=== PATIENT | female | born 1960 | race Hispanic/Latino ===

== ENCOUNTER 2018-06-21 11:00 | Inpatient (IN) | payer MEDICARE ==
[2018-06-21] VITALS (19 sets, daily range): BP systolic 98–133; BP diastolic 39–84
[~2018-06-21] VITALS: Ht 167.6 cm; Wt 71.9 kg
[~2018-06-21 11:00] MED LIST: ARFO15VI3 IH; CANA300T PO; FENT100PAT TD; FLUD0.1T2 PO; INSU100V12 SQ; IPRA4AER IH; MECL-111 PO; MONT10TA24 PO; POTA20TA82 PO; PROP10TA10 PO; QUET150T PO; RIVA20TA PO; SERT100T12 PO; SIMV80TA7 PO; TERB15CR18 TP; TRAM50TA4 PO; UMEC1DIS IH; VALS80TA30 PO; ZARO5 PO
[2018-06-21 12:00] LABS: BASOPHILS % (AUTO) 0.2 % (0.0-5.0); MEAN CORPUSCULAR HGB CONC 31.9 g/dL (32.0-36.0); MEAN CORPUSCULAR VOLUME 97.1 fL (79-99); MONOCYTES % (AUTO) 2.8 % (3.0-13.0); PLATELET COUNT (AUTO) 321 K/uL (130-400); RED BLOOD CELL COUNT(AUTO) 3.19 MIL/uL (4.00-5.50); RED CELL DISTRIBUTION WIDTH 17.5 % (11.0-15.5); WHITE BLOOD COUNT (AUTO) 20.1 K/uL (4.8-10.8)
[2018-06-21] MEDS ORDERED: SODIUM CHLORIDE 0.9% 1000ML 2,000 ML IV ONE (12:00)
[2018-06-21 12:03] LABS: INR 1.07 (0.85-1.15); PROTHROMBIN TIME 11.2 SEC (9.6-11.6)
[2018-06-21] MEDS ORDERED: CEFTRIAXONE SODIUM 1 GM ONE (12:09)
[2018-06-21 12:11] LABS: ALANINE AMINOTRANSFERASE 28 U/L (12-78); ALBUMIN 1.9 g/dL (3.5-5.0); ASPARTATE AMINOTRANSFERASE 36 U/L (10-37); BILIRUBIN,TOTAL 0.9 mg/dL (0.2-1.0); CARBON DIOXIDE 14 mmol/L (21-32); CREATINE KINASE, TOTAL 79 U/L (21-232); CREATININE 1.2 mg/dL (0.5-1.5); GLOMERULAR FILTR. RATE CALC 49 mL/min (>60); MYOGLOBIN 157 ng/mL (10-92); POTASSIUM 4.6 mmol/L (3.5-5.1); SODIUM SERUM 127 mmol/L (136-145); TROPONIN I < 0.04 ng/mL (0.00-0.06); UREA NITROGEN, BLOOD 30 mg/dL (7-18)
[2018-06-21 12:22] LABS: CHLORIDE 89 mmol/L (101-111); GLUCOSE,RANDOM 542 mg/dL (70-105)
[2018-06-21 12:29] LABS: APPEARANCE,URINE Cloudy (CLEAR); BILIRUBIN,URINE Negative (NEGATIVE); COLOR,URINE Yellow (YELLOW); GLUCOSE, URINE (UA) >=1000 mg/dL (NEGATIVE); KETONES,URINE 40 mg/dL (NEGATIVE); LEUKOCYTE ESTERASE ,URINE Small (NEGATIVE); NITRATE,URINE Positive (NEGATIVE); OCCULT BLOOD,URINE Trace (NEGATIVE); PH,URINE 5.5 (5.0-8.0); PROTEIN,URINE Trace (NEGATIVE)
[2018-06-21 12:36] LABS: AMPHET/METH SCREEN,URINE NEGATIVE (NEGATIVE); BARBITURATE SCREEN, URINE NEGATIVE (NEGATIVE); BENZODIAZEPINES SCREEN,URINE POSITIVE (NEGATIVE); CANNABINOID SCREEN,URINE NEGATIVE (NEGATIVE); COCAINE SCREEN,URINE NEGATIVE (NEGATIVE); OPIATE SCREEN,URINE NEGATIVE (NEGATIVE); PHENCYCLIDINE SCREEN,URINE NEGATIVE (NEGATIVE)
[2018-06-21] MEDS ORDERED: INSULIN HUMULIN R 100 UNIT/ML 3ML ONE ×2 (12:46→13:22)
[2018-06-21] MEDS ORDERED: IOHEXOL 350 MG/ML 100ML INFUS..BTL IV ONE (12:53)
[2018-06-21] MEDS ORDERED: SODIUM CHLORIDE 0.9% 1000ML 1,000 ML IV ONE ×2 (13:18→14:11)
[2018-06-21] MEDS ORDERED: SODIUM CHLORIDE 0.9% 100 ML IV ONE (13:20)
[2018-06-21 13:26] LABS: BACTERIA,URINE Moderate /HPF (None Seen); RBC,URINE 0-1 /HPF (0-1); YEAST,URINE BUDDING Few /HPF (None Seen)
[2018-06-21] MEDS ORDERED: INSULIN SQ SCH ×2 (14:30)
[2018-06-21] MEDS ORDERED: DEXTROSE 50%-WATER 50 ML DISP.SYRIN IV PRN (14:30)
[2018-06-21] MEDS ORDERED: GLUCAGON 1MG KIT 1 MG ML IM PRN (14:30)
[2018-06-21] MEDS ORDERED: SODIUM CHLORIDE SQ SCH ×2 (14:30)
[2018-06-21] MEDS: SODIUM CHLORIDE 0.9% 1000ML 1,000 ML IV SCH ×2 (15:13→21:49)
[2018-06-21] MEDS ORDERED: LIDOCAINE HCL-MPF 1% 2ML VIAL IVP PRN ×2 (16:45)
[2018-06-21] MEDS ORDERED: POTASSIUM CHLORIDE 20MEQ/100ML 100 ML IV PRN (16:45)
[2018-06-21 17:00] LABS: ABG BASE EXCESS -7.2 mmol/L (-2.0-3.0); ABG HCO3 16.6 mmol/L (21.0-28.0); ABG OXYGEN SATURATION 96.8 % (95.0-99.0); ABG PCO2 29 mmHg (32-45)
[2018-06-21 17:41] LABS: CREATINE KINASE, TOTAL 36 U/L (21-232); MYOGLOBIN 51 ng/mL (10-92); TROPONIN I < 0.04 ng/mL (0.00-0.06)
[2018-06-21 17:45] LABS: CREATININE 0.6 mg/dL (0.5-1.5); POTASSIUM 2.1 mmol/L (3.5-5.1)
[2018-06-21 17:46] LABS: MAGNESIUM 1.3 mg/dL (1.80-2.40); PHOSPHORUS 1.6 mg/dL (2.5-4.9)
[2018-06-21] MEDS: LEVOFLOXACIN 750 MG/D5W 150 ML 150 ML IV SCH (17:56)
[2018-06-21] MEDS: RIVAROXABAN 20 MG TABLET PO SCH (17:56)
[2018-06-21] MEDS: POTASSIUM CHLORIDE 20MEQ/100ML 100 ML IV PRN ×3 (17:57→21:22)
[2018-06-21] MEDS ORDERED: IPRATROPIUM/ALBUTEROL SULFATE 3 ML SOLUTION IH PRN (18:00)
[2018-06-21] MEDS ORDERED: LIDOCAINE HCL 1% 20 ML VIAL ONE (18:08)
[2018-06-21] MEDS: MAGNESIUM 2GM PREMIX 50ML 50 ML IV PRN ×2 (18:12→23:29)
[2018-06-21] MEDS: IPRATROPIUM/ALBUTEROL SULFATE 3 ML SOLUTION IH SCH ×2 (18:49→23:37)
[2018-06-21 22:53] LABS: CREATININE 0.8 mg/dL (0.5-1.5); PHOSPHORUS 1.7 mg/dL (2.5-4.9); POTASSIUM 3.9 mmol/L (3.5-5.1)
[2018-06-21 23:04] LABS: CREATINE KINASE, TOTAL 55 U/L (21-232); MYOGLOBIN 60 ng/mL (10-92); TROPONIN I < 0.04 ng/mL (0.00-0.06)
[2018-06-21] MEDS ORDERED: DEXTROSE 5 %-0.45 % NACL 1,000 ML IV PRN (23:54)
[2018-06-21] MEDS ORDERED: FLUCONAZOLE 100 MG TAB ONE (23:58)
[2018-06-22] VITALS (27 sets, daily range): BP systolic 77–135; BP diastolic 38–113
[2018-06-22] MEDS ORDERED: FLUCONAZOLE 100 MG TAB PO ONE
[2018-06-22] MEDS ORDERED: DEXTROSE 5 %-0.45 % NACL 1,000 ML IV ONE (03:27)
[2018-06-22 04:12] LABS: HEMATOCRIT 24.1 % (36-48); MEAN CORPUSCULAR HEMOGLOBIN 31.1 pg (27.0-33.0); MEAN CORPUSCULAR HGB CONC 33.3 g/dL (32.0-36.0); MEAN CORPUSCULAR VOLUME 93.4 fL (79-99); PLATELET COUNT (AUTO) 257 K/uL (130-400); RED BLOOD CELL COUNT(AUTO) 2.58 MIL/uL (4.00-5.50); RED CELL DISTRIBUTION WIDTH 16.4 % (11.0-15.5); WHITE BLOOD COUNT (AUTO) 13.4 K/uL (4.8-10.8)
[2018-06-22 04:39] LABS: BAND NEUTROPHILS % (MANUAL) 6 % (0-2); LYMPHOCYTES % (MANUAL) 5 % (22-44); MAN.DIFF COMMENT-IMPRESSION MANUAL DIFFERENTIAL; MONOCYTES % (MANUAL) 2 % (2-9); SEGMENTED NEUTROPHILS % 87 % (40-70)
[2018-06-22 04:42] LABS: ALANINE AMINOTRANSFERASE 16 U/L (12-78); ALBUMIN 1.3 g/dL (3.5-5.0); ASPARTATE AMINOTRANSFERASE 27 U/L (10-37); BILIRUBIN,TOTAL 0.6 mg/dL (0.2-1.0); CARBON DIOXIDE 21 mmol/L (21-32); CHLORIDE 105 mmol/L (101-111); CREATINE KINASE, TOTAL 48 U/L (21-232); CREATININE 0.7 mg/dL (0.5-1.5); GLOMERULAR FILTR. RATE CALC 92 mL/min (>60); GLUCOSE,RANDOM 186 mg/dL (70-105); MYOGLOBIN 65 ng/mL (10-92); PHOSPHORUS 1.4 mg/dL (2.5-4.9); POTASSIUM 3.4 mmol/L (3.5-5.1); SODIUM SERUM 136 mmol/L (136-145); TROPONIN I < 0.04 ng/mL (0.00-0.06); UREA NITROGEN, BLOOD 8 mg/dL (7-18)
[2018-06-22] MEDS: POTASSIUM CHLORIDE 20MEQ/100ML 100 ML IV PRN ×3 (05:42→14:08)
[2018-06-22] MEDS: IPRATROPIUM/ALBUTEROL SULFATE 3 ML SOLUTION IH SCH ×4 (06:20→23:46)
[2018-06-22 07:26] LABS: ABG BASE EXCESS -12.3 mmol/L (-2.0-3.0); ABG HCO3 11.5 mmol/L (21.0-28.0); ABG OXYGEN SATURATION 95.6 % (95.0-99.0); ABG PCO2 23 mmHg (32-45)
[2018-06-22] MEDS ORDERED: POTASSIUM PHOS 15 mMOL+NS250ML 250 ML IV SCH (07:45)
[2018-06-22] MEDS: LEVOFLOXACIN 750 MG/D5W 150 ML 150 ML IV SCH (08:12)
[2018-06-22] MEDS: ACETAMINOPHEN 325 MG TAB PO PRN ×2 (08:12→23:11)
[2018-06-22] MEDS: RIVAROXABAN 20 MG TABLET PO SCH (08:12)
[2018-06-22] MEDS ORDERED: PRED10TA3 PO (08:31)
[2018-06-22] MEDS ORDERED: OLME20TA10 PO (08:31)
[2018-06-22] MEDS ORDERED: FLUO20CA30 PO (08:31)
[2018-06-22 11:21] LABS: MAGNESIUM 1.6 mg/dL (1.80-2.40); PHOSPHORUS 1.3 mg/dL (2.5-4.9)
[2018-06-22 11:39] LABS: CREATININE 0.7 mg/dL (0.5-1.5)
[2018-06-22] MEDS: CEFTRIAXONE SODIUM 1 GM IVP SCH (12:26)
[2018-06-22] MEDS: MAGNESIUM 2GM PREMIX 50ML 50 ML IV PRN (12:26)
[2018-06-22] MEDS: SODIUM CHLORIDE 0.9% 1000ML 1,000 ML IV SCH ×2 (17:09→19:30)
[2018-06-22 17:12] LABS: CREATININE 0.7 mg/dL (0.5-1.5); MAGNESIUM 2.1 mg/dL (1.80-2.40); POTASSIUM 3.9 mmol/L (3.5-5.1)
[2018-06-22] MEDS: INSULIN HUMULIN R 100 UNIT/ML 3ML SQ SCH (21:01)
[2018-06-22 23:28] LABS: MAGNESIUM 2.1 mg/dL (1.80-2.40); PHOSPHORUS 1.8 mg/dL (2.5-4.9)
[2018-06-23] VITALS (22 sets, daily range): BP systolic 80–120; BP diastolic 42–78
[2018-06-23 03:53] LABS: HEMATOCRIT 21.7 % (36-48); MEAN CORPUSCULAR HEMOGLOBIN 31.4 pg (27.0-33.0); MEAN CORPUSCULAR HGB CONC 33.4 g/dL (32.0-36.0); PLATELET COUNT (AUTO) 248 K/uL (130-400); RED BLOOD CELL COUNT(AUTO) 2.31 MIL/uL (4.00-5.50); RED CELL DISTRIBUTION WIDTH 16.2 % (11.0-15.5); WHITE BLOOD COUNT (AUTO) 14.8 K/uL (4.8-10.8)
[2018-06-23 04:01] LABS: CREATININE 0.7 mg/dL (0.5-1.5); PHOSPHORUS 2.6 mg/dL (2.5-4.9); POTASSIUM 3.3 mmol/L (3.5-5.1)
[2018-06-23] MEDS: INSULIN HUMULIN R 100 UNIT/ML 3ML SQ SCH ×4 (05:34→21:00)
[2018-06-23] MEDS: IPRATROPIUM/ALBUTEROL SULFATE 3 ML SOLUTION IH SCH ×4 (06:15→23:22)
[2018-06-23] MEDS: FLUCONAZOLE 100 MG TAB PO SCH (07:40)
[2018-06-23] MEDS: POTASSIUM CHLORIDE 10% ELIXIR 20 MEQ/15 ML UDCUP PO PRN ×3 (07:42→18:54)
[2018-06-23] MEDS: RIVAROXABAN 20 MG TABLET PO SCH (07:45)
[2018-06-23] MEDS: LEVOFLOXACIN 750 MG/D5W 150 ML 150 ML IV SCH (08:20)
[2018-06-23] MEDS: ACETAMINOPHEN 325 MG TAB PO PRN ×2 (11:03→23:36)
[2018-06-23] MEDS: CEFTRIAXONE SODIUM 1 GM IVP SCH (11:58)
[2018-06-23] MEDS ORDERED: LACTATED RINGERS 1000ML 1,000 ML IV ONE (14:57)
[2018-06-23] MEDS ORDERED: LACTATED RINGERS 1000ML 1,000 ML IV SCH ×2 (15:00)
[2018-06-23] MEDS ORDERED: LACTATED RINGERS 1000ML IV SCH (15:00)
[2018-06-23 15:15] LABS: CARBON DIOXIDE 20 mmol/L (21-32); CHLORIDE 102 mmol/L (101-111); CREATININE 0.7 mg/dL (0.5-1.5); GLOMERULAR FILTR. RATE CALC 92 mL/min (>60); GLUCOSE,RANDOM 236 mg/dL (70-105); POTASSIUM 3.8 mmol/L (3.5-5.1); SODIUM SERUM 134 mmol/L (136-145); UREA NITROGEN, BLOOD 4 mg/dL (7-18)
[2018-06-23 15:20] LABS: ALANINE AMINOTRANSFERASE 20 U/L (12-78); ALBUMIN 1.2 g/dL (3.5-5.0); ASPARTATE AMINOTRANSFERASE 33 U/L (10-37); BILIRUBIN,TOTAL 0.4 mg/dL (0.2-1.0); TOTAL PROTEIN, SERUM 6.7 g/dL (6.0-8.3)
[2018-06-23 15:50] LABS: ACETONE,BLOOD POSITIVE SMALL (NEGATIVE)
[2018-06-23] MEDS: SODIUM CHLORIDE 0.9% 1000ML 1,000 ML IV SCH ×2 (16:30→23:51)
[2018-06-24] VITALS (15 sets, daily range): BP systolic 82–110; BP diastolic 38–64
[2018-06-24 03:45] LABS: HEMATOCRIT 22.5 % (36-48); MEAN CORPUSCULAR HEMOGLOBIN 31.3 pg (27.0-33.0); MEAN CORPUSCULAR HGB CONC 33.5 g/dL (32.0-36.0); MEAN CORPUSCULAR VOLUME 93.5 fL (79-99); PLATELET COUNT (AUTO) 236 K/uL (130-400); RED CELL DISTRIBUTION WIDTH 16.1 % (11.0-15.5); WHITE BLOOD COUNT (AUTO) 12.7 K/uL (4.8-10.8)
[2018-06-24 03:52] LABS: CREATININE 0.7 mg/dL (0.5-1.5); POTASSIUM 3.8 mmol/L (3.5-5.1)
[2018-06-24] MEDS: INSULIN HUMULIN R 100 UNIT/ML 3ML SQ SCH ×4 (05:46→21:45)
[2018-06-24] MEDS: IPRATROPIUM/ALBUTEROL SULFATE 3 ML SOLUTION IH SCH ×4 (06:32→23:41)
[2018-06-24] MEDS: FLUCONAZOLE 100 MG TAB PO SCH (08:02)
[2018-06-24] MEDS: SODIUM CHLORIDE 0.9% 1000ML 1,000 ML IV SCH ×2 (08:02→20:57)
[2018-06-24] MEDS: LEVOFLOXACIN 750 MG/D5W 150 ML 150 ML IV SCH (08:02)
[2018-06-24] MEDS: RIVAROXABAN 20 MG TABLET PO SCH (08:56)
[2018-06-24] MEDS: ACETAMINOPHEN 325 MG TAB PO PRN ×2 (09:11→20:38)
[2018-06-24] MEDS: CEFTRIAXONE SODIUM 1 GM IVP SCH (11:46)
[2018-06-24] MEDS ORDERED: VANCOMYCIN PROTOCOL PER PHARMACY IV SCH (12:00)
[2018-06-24] MEDS: ZOSYN 3.375GM+NS 50ML 50 ML IV SCH ×2 (14:20→20:37)
[2018-06-24] MEDS ORDERED: COMPOUND IV REFRIGERATED 1 EACH IVSOLN MISC PRN (15:00)
[2018-06-24] MEDS: VANCOMYCIN 1.25 GM in SODIUM CHLORIDE 0.9% 250 ML IV SCH (15:51)
[2018-06-24] MEDS ORDERED: SODIUM CHLORIDE 3% FOR INHALATION 4 ML/AMP VIAL.NEB IH ONE (21:03)
[2018-06-24] MEDS: FENTANYL 100 MCG/HR PATCH TD SCH (21:35)
[2018-06-25] MEDS: VANCOMYCIN 1.25 GM in SODIUM CHLORIDE 0.9% 250 ML IV SCH ×3 (03:22→21:28)
[2018-06-25 03:46] LABS: BASOPHILS % (AUTO) 0.3 % (0.0-5.0); EOSINOPHILS % (AUTO) 0.3 % (0.0-8.0); HEMATOCRIT 23.7 % (36-48); LYMPHOCYTES % (AUTO) 10.6 % (21.0-51.0); MEAN CORPUSCULAR HEMOGLOBIN 31.6 pg (27.0-33.0); MEAN CORPUSCULAR HGB CONC 34.1 g/dL (32.0-36.0); MEAN CORPUSCULAR VOLUME 92.6 fL (79-99); MONOCYTES % (AUTO) 4.7 % (3.0-13.0); NEUTROPHILS % (AUTO) 84.1 % (40.0-77.0); PLATELET COUNT (AUTO) 257 K/uL (130-400); RED BLOOD CELL COUNT(AUTO) 2.56 MIL/uL (4.00-5.50); RED CELL DISTRIBUTION WIDTH 15.8 % (11.0-15.5); WHITE BLOOD COUNT (AUTO) 10.9 K/uL (4.8-10.8)
[2018-06-25 03:52] VITALS: BP 105/66
[2018-06-25 03:56] LABS: INR 1.28 (0.85-1.15); PARTIAL THROMBOPLASTIN TIME 40.5 SEC (26.3-35.5); PROTHROMBIN TIME 13.4 SEC (9.6-11.6)
[2018-06-25 04:03] LABS: ALBUMIN 1.2 g/dL (3.5-5.0); BILIRUBIN,TOTAL 0.4 mg/dL (0.2-1.0); CREATININE 0.7 mg/dL (0.5-1.5); MAGNESIUM 1.6 mg/dL (1.80-2.40); PHOSPHORUS 3.6 mg/dL (2.5-4.9); POTASSIUM 3.8 mmol/L (3.5-5.1); TOTAL PROTEIN, SERUM 6.8 g/dL (6.0-8.3)
[2018-06-25] MEDS: ZOSYN 3.375GM+NS 50ML 50 ML IV SCH ×3 (05:34→20:43)
[2018-06-25] MEDS: IPRATROPIUM/ALBUTEROL SULFATE 3 ML SOLUTION IH SCH ×4 (06:07→23:37)
[2018-06-25] MEDS: INSULIN HUMULIN R 100 UNIT/ML 3ML SQ SCH ×4 (06:52→21:18)
[2018-06-25 07:00] VITALS: BP 102/60
[2018-06-25] MEDS ORDERED: SODIUM CHLORIDE 3% FOR INHALATION 4 ML/AMP VIAL.NEB IH ONE (08:57)
[2018-06-25] MEDS: RIVAROXABAN 20 MG TABLET PO SCH (09:00)
[2018-06-25 11:00] VITALS: BP 94/47
[2018-06-25] MEDS: FLUCONAZOLE 100 MG TAB PO SCH (11:21)
[2018-06-25] MEDS: LEVOFLOXACIN 750 MG/D5W 150 ML 150 ML IV SCH (11:21)
[2018-06-25 11:37] LABS: COLLECTION PERIOD,URINE 24 HR; TOTAL VOLUME 24HRS,URINE 4800 mL; TPROTEIN TIMED,URINE 27 mg/dL; TPROTEIN U,24HR CALC 1296 mg/24HR (0-165)
[2018-06-25 16:00] VITALS: BP 92/54
[2018-06-25] MEDS: SODIUM CHLORIDE 0.9% 1000ML 1,000 ML IV SCH (16:50)
[2018-06-25] MEDS: ACETAMINOPHEN 325 MG TAB PO PRN (18:34)
[2018-06-25 19:58] VITALS: BP 90/45
[2018-06-26] VITALS (22 sets, daily range): BP systolic 93–126; BP diastolic 48–81
[2018-06-26 03:30] LABS: HEMATOCRIT 23.6 % (36-48); MEAN CORPUSCULAR HEMOGLOBIN 31.5 pg (27.0-33.0); MEAN CORPUSCULAR VOLUME 92.6 fL (79-99); PLATELET COUNT (AUTO) 238 K/uL (130-400); RED BLOOD CELL COUNT(AUTO) 2.55 MIL/uL (4.00-5.50); RED CELL DISTRIBUTION WIDTH 16.1 % (11.0-15.5); WHITE BLOOD COUNT (AUTO) 9.8 K/uL (4.8-10.8)
[2018-06-26 04:06] LABS: CREATININE 0.7 mg/dL (0.5-1.5); POTASSIUM 3.7 mmol/L (3.5-5.1)
[2018-06-26] MEDS: ZOSYN 3.375GM+NS 50ML 50 ML IV SCH ×2 (05:01→13:00)
[2018-06-26] MEDS: IPRATROPIUM/ALBUTEROL SULFATE 3 ML SOLUTION IH SCH ×4 (06:16→23:10)
[2018-06-26] MEDS: INSULIN HUMULIN R 100 UNIT/ML 3ML SQ SCH ×4 (06:23→21:34)
[2018-06-26] MEDS: FLUCONAZOLE 100 MG TAB PO SCH (07:53)
[2018-06-26] MEDS: ACETAMINOPHEN 325 MG TAB PO PRN ×2 (07:53→23:35)
[2018-06-26] MEDS: VANCOMYCIN 1.25 GM in SODIUM CHLORIDE 0.9% 250 ML IV SCH ×2 (07:54→21:17)
[2018-06-26] MEDS: SODIUM CHLORIDE 0.9% 1000ML 1,000 ML IV SCH ×2 (10:45→20:45)
[2018-06-26] MEDS ORDERED: SODIUM CHLORIDE 0.9% 1000ML 1,000 ML IV SCH (10:45)
[2018-06-26] MEDS ORDERED: ONDANSETRON HCL 4 MG/2 ML VIAL ONE (11:02)
[2018-06-26] MEDS: LEVOFLOXACIN 750 MG/D5W 150 ML 150 ML IV SCH (11:08)
[2018-06-26] MEDS: MORPHINE SULFATE 2 MG/ML 1ML SYG IVP PRN ×3 (11:08→21:18)
[2018-06-26] MEDS ORDERED: PROPOFOL 10 MG/ML 20ML VIAL IV ONE ×2 (13:41)
[2018-06-27 03:34] VITALS: BP 107/66
[2018-06-27 03:47] LABS: HEMATOCRIT 21.9 % (36-48); MEAN CORPUSCULAR HEMOGLOBIN 30.4 pg (27.0-33.0); MEAN CORPUSCULAR HGB CONC 32.6 g/dL (32.0-36.0); PLATELET COUNT (AUTO) 211 K/uL (130-400); RED BLOOD CELL COUNT(AUTO) 2.36 MIL/uL (4.00-5.50); RED CELL DISTRIBUTION WIDTH 16.2 % (11.0-15.5); WHITE BLOOD COUNT (AUTO) 11.6 K/uL (4.8-10.8)
[2018-06-27 03:56] LABS: CREATININE 1.2 mg/dL (0.5-1.5); POTASSIUM 3.2 mmol/L (3.5-5.1)
[2018-06-27] MEDS: POTASSIUM CHLORIDE 20 MEQ ERTAB PO PRN ×2 (04:35→06:48)
[2018-06-27] MEDS: IPRATROPIUM/ALBUTEROL SULFATE 3 ML SOLUTION IH SCH ×4 (06:09→23:06)
[2018-06-27] MEDS: SODIUM CHLORIDE 0.9% 1000ML 1,000 ML IV SCH ×2 (06:45→16:45)
[2018-06-27] MEDS: INSULIN HUMULIN R 100 UNIT/ML 3ML SQ SCH ×4 (06:47→21:00)
[2018-06-27 07:37] VITALS: BP 105/61
[2018-06-27] MEDS: POTASSIUM CHLORIDE 10% ELIXIR 20 MEQ/15 ML UDCUP PO PRN (09:02)
[2018-06-27] MEDS: FLUCONAZOLE 100 MG TAB PO SCH (09:02)
[2018-06-27] MEDS: VANCOMYCIN 1.25 GM in SODIUM CHLORIDE 0.9% 250 ML IV SCH ×2 (09:03→22:54)
[2018-06-27] MEDS: LEVOFLOXACIN 750 MG/D5W 150 ML 150 ML IV SCH (09:03)
[2018-06-27] MEDS: MORPHINE SULFATE 2 MG/ML 1ML SYG IVP PRN (09:11)
[2018-06-27] MEDS: RIVAROXABAN 20 MG TABLET PO SCH (11:34)
[2018-06-27] MEDS: MAGNESIUM 2GM PREMIX 50ML 50 ML IV SCH (11:34)
[2018-06-27 12:04] VITALS: BP 100/60
[2018-06-27 15:44] VITALS: BP 99/63
[2018-06-27 20:00] VITALS: BP 104/51
[2018-06-27] MEDS: FENTANYL 100 MCG/HR PATCH TD SCH (22:54)
[2018-06-28] VITALS (7 sets, daily range): BP systolic 94–127; BP diastolic 50–61
[2018-06-28] MEDS: INSULIN HUMULIN R 100 UNIT/ML 3ML SQ SCH ×4 (05:39→20:14)
[2018-06-28] MEDS: SODIUM CHLORIDE 0.9% 1000ML 1,000 ML IV SCH ×3 (05:41→22:45)
[2018-06-28] MEDS: ACETAMINOPHEN 325 MG TAB PO PRN ×3 (05:48→23:19)
[2018-06-28] MEDS: IPRATROPIUM/ALBUTEROL SULFATE 3 ML SOLUTION IH SCH ×4 (06:13→23:18)
[2018-06-28 06:29] LABS: HEMATOCRIT 21.4 % (36-48); MEAN CORPUSCULAR HEMOGLOBIN 31.1 pg (27.0-33.0); MEAN CORPUSCULAR HGB CONC 33.5 g/dL (32.0-36.0); MEAN CORPUSCULAR VOLUME 92.9 fL (79-99); PLATELET COUNT (AUTO) 192 K/uL (130-400); RED CELL DISTRIBUTION WIDTH 16.3 % (11.0-15.5); WHITE BLOOD COUNT (AUTO) 11.5 K/uL (4.8-10.8)
[2018-06-28 06:35] LABS: MAGNESIUM 2.1 mg/dL (1.80-2.40); POTASSIUM 4.4 mmol/L (3.5-5.1)
[2018-06-28] MEDS: LEVOFLOXACIN 750 MG/D5W 150 ML 150 ML IV SCH (07:38)
[2018-06-28] MEDS: FLUCONAZOLE 100 MG TAB PO SCH (07:39)
[2018-06-28] MEDS: RIVAROXABAN 20 MG TABLET PO SCH (07:39)
[2018-06-28] MEDS: VANCOMYCIN 1.25 GM in SODIUM CHLORIDE 0.9% 250 ML IV SCH (09:00)
[2018-06-28] MEDS: ONDANSETRON HCL MDV 20ML 2 MG/ML VIAL IVP PRN (12:17)
[2018-06-28] MEDS ORDERED: SODIUM CHLORIDE 0.9% 1000ML 500 ML IV SCH (22:33)
[2018-06-29] MEDS: SODIUM CHLORIDE 0.9% 1000ML 1,000 ML IV SCH ×2 (00:23→18:45)
[2018-06-29 03:50] VITALS: BP 112/53
[2018-06-29] MEDS: ACETAMINOPHEN 325 MG TAB PO PRN ×4 (04:07→21:03)
[2018-06-29] MEDS: INSULIN HUMULIN R 100 UNIT/ML 3ML SQ SCH ×4 (05:40→20:39)
[2018-06-29 06:16] LABS: MEAN CORPUSCULAR HEMOGLOBIN 31.1 pg (27.0-33.0); MEAN CORPUSCULAR HGB CONC 33.5 g/dL (32.0-36.0); MEAN CORPUSCULAR VOLUME 92.7 fL (79-99); PLATELET COUNT (AUTO) 159 K/uL (130-400); RED BLOOD CELL COUNT(AUTO) 2.11 MIL/uL (4.00-5.50); RED CELL DISTRIBUTION WIDTH 16.3 % (11.0-15.5); WHITE BLOOD COUNT (AUTO) 7.5 K/uL (4.8-10.8)
[2018-06-29 06:19] LABS: HEMATOCRIT 19.6 % (36-48)
[2018-06-29 06:32] LABS: CREATININE 2.3 mg/dL (0.5-1.5); POTASSIUM 4.4 mmol/L (3.5-5.1)
[2018-06-29] MEDS: IPRATROPIUM/ALBUTEROL SULFATE 3 ML SOLUTION IH SCH ×4 (06:48→23:34)
[2018-06-29 07:30] VITALS: BP 90/51
[2018-06-29] MEDS: FLUCONAZOLE 100 MG TAB PO SCH (09:28)
[2018-06-29 09:40] LABS: HEMATOCRIT 20.8 % (36-48)
[2018-06-29 11:00] VITALS: BP 98/54
[2018-06-29] MEDS ORDERED: PHARMACY COMMUNICATION MISC SCH (12:15)
[2018-06-29] MEDS ORDERED: OSELTAMIVIR PHOSPHATE 75 MG CAP PO SCH (12:15)
[2018-06-29] MEDS ORDERED: COMPOUND PO MISCELLANEOUS 1 EACH MISC MISC PRN (12:45)
[2018-06-29] MEDS ORDERED: SODIUM CHLORIDE 3% FOR INHALATION 4 ML/AMP VIAL.NEB IH ONE ×2 (13:47→21:26)
[2018-06-29] MEDS: MEROPENEM 1 GM VIAL IVP SCH ×2 (14:21→20:25)
[2018-06-29] MEDS: OSELTAMIVIR SUSP 15 MG/ML (6 CAPS/29ML) PO SCH ×2 (14:27)
[2018-06-29] MEDS: ZYVOX 600 MG TAB PO SCH (14:49)
[2018-06-29 16:00] VITALS: BP 103/48
[2018-06-29 19:00] VITALS: BP_SYST 90; BP_SYST 94; BP_DIAS 47; BP_DIAS 55
[2018-06-29] MEDS ORDERED: SODIUM CHLORIDE 0.9% 250 ML IV ONE (20:37)
[2018-06-29] MEDS: PANTOPRAZOLE SODIUM 40 MG TABLET.DR PO SCH (21:44)
[2018-06-30] VITALS (21 sets, daily range): BP systolic 82–120; BP diastolic 46–86
[2018-06-30] MEDS: SODIUM CHLORIDE 0.9% 1000ML 1,000 ML IV SCH ×3 (00:23→22:01)
[2018-06-30] MEDS: ZYVOX 600 MG TAB PO SCH ×2 (02:33→13:14)
[2018-06-30] MEDS: MEROPENEM 1 GM VIAL IVP SCH ×3 (04:02→20:39)
[2018-06-30] MEDS: ACETAMINOPHEN 325 MG TAB PO PRN (04:17)
[2018-06-30 04:38] LABS: BASOPHILS % (AUTO) 0.3 % (0.0-5.0); EOSINOPHILS % (AUTO) 0.5 % (0.0-8.0); HEMATOCRIT 25.1 % (36-48); LYMPHOCYTES % (AUTO) 8.9 % (21.0-51.0); MEAN CORPUSCULAR HEMOGLOBIN 30.4 pg (27.0-33.0); MEAN CORPUSCULAR HGB CONC 34.1 g/dL (32.0-36.0); MEAN CORPUSCULAR VOLUME 89.3 fL (79-99); MONOCYTES % (AUTO) 3.5 % (3.0-13.0); NEUTROPHILS % (AUTO) 86.8 % (40.0-77.0); NUCLEATED RED BLOOD CELLS 0.1 % (0.0-0.19); PLATELET COUNT (AUTO) 159 K/uL (130-400); RED BLOOD CELL COUNT(AUTO) 2.81 MIL/uL (4.00-5.50); RED CELL DISTRIBUTION WIDTH 16.5 % (11.0-15.5)
[2018-06-30 04:50] LABS: INR 1.06 (0.85-1.15); PARTIAL THROMBOPLASTIN TIME 38.3 SEC (26.3-35.5); PROTHROMBIN TIME 11.1 SEC (9.6-11.6)
[2018-06-30 05:05] LABS: ALANINE AMINOTRANSFERASE 19 U/L (12-78); ALBUMIN 1.1 g/dL (3.5-5.0); ASPARTATE AMINOTRANSFERASE 23 U/L (10-37); BILIRUBIN,TOTAL 0.4 mg/dL (0.2-1.0); CARBON DIOXIDE 22 mmol/L (21-32); CHLORIDE 104 mmol/L (101-111); CREATININE 2.4 mg/dL (0.5-1.5); GLOMERULAR FILTR. RATE CALC 22 mL/min (>60); GLUCOSE,RANDOM 145 mg/dL (70-105); PHOSPHORUS 4.6 mg/dL (2.5-4.9); POTASSIUM 4.7 mmol/L (3.5-5.1); SODIUM SERUM 137 mmol/L (136-145); TOTAL PROTEIN, SERUM 6.1 g/dL (6.0-8.3); UREA NITROGEN, BLOOD 15 mg/dL (7-18)
[2018-06-30 05:10] LABS: B-TYPE NATRIURETIC PEPTIDE 1650 pg/mL (0-100)
[2018-06-30 05:15] LABS: AMMONIA < 10 umol/L (11-32)
[2018-06-30] MEDS: IPRATROPIUM/ALBUTEROL SULFATE 3 ML SOLUTION IH SCH ×4 (06:09→23:24)
[2018-06-30] MEDS: INSULIN HUMULIN R 100 UNIT/ML 3ML SQ SCH ×4 (06:31→20:47)
[2018-06-30] MEDS: PANTOPRAZOLE SODIUM 40 MG TABLET.DR PO SCH ×2 (09:13→20:39)
[2018-06-30] MEDS: FLUCONAZOLE 100 MG TAB PO SCH (09:13)
[2018-06-30] MEDS: HYDROCORTISONE SOD SUCCINATE 100 MG/2 ML VIAL IV SCH ×3 (09:13→21:15)
[2018-06-30] MEDS: OSELTAMIVIR SUSP 15 MG/ML (6 CAPS/29ML) PO SCH ×2 (09:28)
[2018-06-30] MEDS: ACETAMINOPHEN-CODEINE 300/30MG TAB PO PRN (17:50)
[2018-06-30] MEDS ORDERED: BUDESONIDE 0.5 MG/2 ML INH IH ONE (18:26)
[2018-06-30] MEDS: BUDESONIDE 0.5 MG/2 ML INH IH SCH (18:28)
[2018-06-30] MEDS: MORPHINE SULFATE 2 MG/ML 1ML SYG IVP PRN (22:00)
[2018-06-30] MEDS: ONDANSETRON HCL MDV 20ML 2 MG/ML VIAL IVP PRN (22:00)
[2018-07-01] VITALS (12 sets, daily range): BP systolic 105–136; BP diastolic 61–81
[2018-07-01] MEDS: ACETAMINOPHEN-CODEINE 300/30MG TAB PO PRN ×3 (00:25→23:07)
[2018-07-01] MEDS: ZYVOX 600 MG TAB PO SCH ×3 (01:02→23:14)
[2018-07-01 04:19] LABS: HEMATOCRIT 24.4 % (36-48); MEAN CORPUSCULAR HEMOGLOBIN 29.7 pg (27.0-33.0); MEAN CORPUSCULAR HGB CONC 32.7 g/dL (32.0-36.0); MEAN CORPUSCULAR VOLUME 90.7 fL (79-99); NUCLEATED RED BLOOD CELLS 0.1 % (0.0-0.19); PLATELET COUNT (AUTO) 140 K/uL (130-400); RED BLOOD CELL COUNT(AUTO) 2.69 MIL/uL (4.00-5.50); WHITE BLOOD COUNT (AUTO) 5.1 K/uL (4.8-10.8)
[2018-07-01 04:29] LABS: B-TYPE NATRIURETIC PEPTIDE 1730 pg/mL (0-100)
[2018-07-01 04:31] LABS: CREATININE 2.5 mg/dL (0.5-1.5); MAGNESIUM 2.1 mg/dL (1.80-2.40); PHOSPHORUS 5.4 mg/dL (2.5-4.9); POTASSIUM 4.4 mmol/L (3.5-5.1)
[2018-07-01] MEDS: MEROPENEM 1 GM VIAL IVP SCH ×3 (04:41→20:07)
[2018-07-01] MEDS: HYDROCORTISONE SOD SUCCINATE 100 MG/2 ML VIAL IV SCH (05:10)
[2018-07-01] MEDS: BUDESONIDE 0.5 MG/2 ML INH IH SCH ×2 (06:08→19:02)
[2018-07-01] MEDS: IPRATROPIUM/ALBUTEROL SULFATE 3 ML SOLUTION IH SCH ×4 (06:08→23:21)
[2018-07-01] MEDS: INSULIN HUMULIN R 100 UNIT/ML 3ML SQ SCH ×4 (06:30→20:28)
[2018-07-01 07:47] LABS: ABG BASE EXCESS -5.4 mmol/L (-2.0-3.0); ABG OXYGEN SATURATION 95.9 % (95.0-99.0); ABG PCO2 30 mmHg (32-45)
[2018-07-01] MEDS: SODIUM CHLORIDE 0.9% 1000ML 1,000 ML IV SCH (08:38)
[2018-07-01] MEDS: PANTOPRAZOLE SODIUM 40 MG TABLET.DR PO SCH ×2 (08:42→20:06)
[2018-07-01] MEDS: FLUCONAZOLE 100 MG TAB PO SCH (08:42)
[2018-07-01] MEDS: PREDNISONE 20 MG TABLET PO SCH (12:25)
[2018-07-01] MEDS: OSELTAMIVIR SUSP 15 MG/ML (6 CAPS/29ML) PO SCH ×2 (12:26)
[2018-07-01 18:37] LABS: SODIUM,URINE RANDOM 32 mmol/l (40-220)
[2018-07-01 18:38] LABS: APPEARANCE,URINE SL CLOUDY (CLEAR); BILIRUBIN,URINE NEGATIVE (NEGATIVE); COLOR,URINE YELLOW (YELLOW); GLUCOSE, URINE (UA) >=1000 mg/dL (NEGATIVE); KETONES,URINE NEGATIVE (NEGATIVE); LEUKOCYTE ESTERASE ,URINE NEGATIVE (NEGATIVE); NITRATE,URINE NEGATIVE (NEGATIVE); OCCULT BLOOD,URINE TRACE-INTACT (NEGATIVE); PROTEIN,URINE TRACE (NEGATIVE); UROBILINOGEN,URINE 0.2 mg/dL (0.2-1.0)
[2018-07-01 18:58] LABS: CREATININE,URINE RANDOM 30 mg/dL (30-135); POTASSIUM,URINE RANDOM 33 mmol/L (25-125); SODIUM,URINE RANDOM 32 mmol/l (40-220)
[2018-07-01 19:26] LABS: BACTERIA,URINE Rare /HPF (None Seen); SQUAMOUS EPITHELIAL CELL,UR Few /HPF (0-2); TRANSITIONAL EPI CELLS,URINE Rare /HPF (None Seen); WBC,URINE 0-1 /HPF (0-1); YEAST,URINE BUDDING Moderate /HPF (None Seen)
[2018-07-01] MEDS: MORPHINE SULFATE 2 MG/ML 1ML SYG IVP PRN (20:06)
[2018-07-01] MEDS: ONDANSETRON HCL MDV 20ML 2 MG/ML VIAL IVP PRN (20:06)
[2018-07-02 03:33] VITALS: BP 134/78
[2018-07-02 04:33] LABS: HEMATOCRIT 23.8 % (36-48); MEAN CORPUSCULAR HEMOGLOBIN 30.4 pg (27.0-33.0); MEAN CORPUSCULAR VOLUME 89.5 fL (79-99); NUCLEATED RED BLOOD CELLS 0.1 % (0.0-0.19); PLATELET COUNT (AUTO) 156 K/uL (130-400); RED BLOOD CELL COUNT(AUTO) 2.66 MIL/uL (4.00-5.50); RED CELL DISTRIBUTION WIDTH 16.3 % (11.0-15.5); WHITE BLOOD COUNT (AUTO) 7.6 K/uL (4.8-10.8)
[2018-07-02] MEDS: MEROPENEM 1 GM VIAL IVP SCH ×3 (04:40→20:22)
[2018-07-02] MEDS: ACETAMINOPHEN-CODEINE 300/30MG TAB PO PRN (04:40)
[2018-07-02 05:03] LABS: ALBUMIN 1.3 g/dL (3.5-5.0); BAND NEUTROPHILS % (MANUAL) 9 % (0-2); BILIRUBIN,TOTAL 0.3 mg/dL (0.2-1.0); CREATININE 2.4 mg/dL (0.5-1.5); LYMPHOCYTES % (MANUAL) 15 % (22-44); MAGNESIUM 2.2 mg/dL (1.80-2.40); MAN.DIFF COMMENT-IMPRESSION MANUAL DIFFERENTIAL; MONOCYTES % (MANUAL) 6 % (2-9); PHOSPHORUS 4.9 mg/dL (2.5-4.9); PLATELET MORPHOLOGY COMMENT ADEQUATE; POTASSIUM 3.9 mmol/L (3.5-5.1); SEGMENTED NEUTROPHILS % 70 % (40-70); THYROID STIMULATING HORMONE 0.53 uIU/mL (0.36-3.74); TOTAL PROTEIN, SERUM 6.2 g/dL (6.0-8.3); URIC ACID 5.8 mg/dL (2.6-7.2)
[2018-07-02 05:20] LABS: % IRON SATURATION 39.6 % (22-44)
[2018-07-02] MEDS: MORPHINE SULFATE 2 MG/ML 1ML SYG IVP PRN ×4 (05:38→20:21)
[2018-07-02] MEDS: INSULIN HUMULIN R 100 UNIT/ML 3ML SQ SCH ×4 (06:17→21:22)
[2018-07-02] MEDS: IPRATROPIUM/ALBUTEROL SULFATE 3 ML SOLUTION IH SCH ×4 (06:34→23:44)
[2018-07-02] MEDS: BUDESONIDE 0.5 MG/2 ML INH IH SCH ×2 (06:48→18:42)
[2018-07-02 08:15] VITALS: BP 124/70
[2018-07-02] MEDS: FLUCONAZOLE 100 MG TAB PO SCH (09:59)
[2018-07-02] MEDS: FOLIC ACID/VITAMIN B COMP W-C 1 MG CAPSULE PO SCH (09:59)
[2018-07-02] MEDS: PANTOPRAZOLE SODIUM 40 MG TABLET.DR PO SCH ×2 (09:59→20:22)
[2018-07-02] MEDS: PREDNISONE 20 MG TABLET PO SCH (09:59)
[2018-07-02 11:50] VITALS: BP 139/91
[2018-07-02] MEDS: ZYVOX 600 MG TAB PO SCH (13:24)
[2018-07-02] MEDS: OSELTAMIVIR SUSP 15 MG/ML (6 CAPS/29ML) PO SCH ×2 (13:33)
[2018-07-02 16:22] VITALS: BP 132/76
[2018-07-02 20:00] VITALS: BP 128/67
[2018-07-03] VITALS: BP 130/71
[2018-07-03] MEDS: ZYVOX 600 MG TAB PO SCH ×2 (02:01→14:29)
[2018-07-03 03:04] VITALS: BP 124/59
[2018-07-03] MEDS: MEROPENEM 1 GM VIAL IVP SCH ×3 (03:42→20:57)
[2018-07-03 04:29] LABS: HEMATOCRIT 24.3 % (36-48); MEAN CORPUSCULAR HEMOGLOBIN 30.2 pg (27.0-33.0); MEAN CORPUSCULAR VOLUME 88.6 fL (79-99); NUCLEATED RED BLOOD CELLS 0.1 % (0.0-0.19); PLATELET COUNT (AUTO) 203 K/uL (130-400); RED BLOOD CELL COUNT(AUTO) 2.74 MIL/uL (4.00-5.50); RED CELL DISTRIBUTION WIDTH 16.1 % (11.0-15.5); WHITE BLOOD COUNT (AUTO) 7.1 K/uL (4.8-10.8)
[2018-07-03 04:45] LABS: CREATININE 2.3 mg/dL (0.5-1.5); POTASSIUM 3.2 mmol/L (3.5-5.1)
[2018-07-03] MEDS: INSULIN HUMULIN R 100 UNIT/ML 3ML SQ SCH ×4 (06:31→21:01)
[2018-07-03] MEDS: MORPHINE SULFATE 2 MG/ML 1ML SYG IVP PRN (06:42)
[2018-07-03] MEDS: BUDESONIDE 0.5 MG/2 ML INH IH SCH ×2 (06:47→18:35)
[2018-07-03] MEDS: IPRATROPIUM/ALBUTEROL SULFATE 3 ML SOLUTION IH SCH ×4 (06:47→23:50)
[2018-07-03 08:00] VITALS: BP 112/65
[2018-07-03] MEDS: FLUCONAZOLE 100 MG TAB PO SCH (08:46)
[2018-07-03] MEDS: PANTOPRAZOLE SODIUM 40 MG TABLET.DR PO SCH ×2 (08:46→21:06)
[2018-07-03] MEDS: FOLIC ACID/VITAMIN B COMP W-C 1 MG CAPSULE PO SCH (08:46)
[2018-07-03] MEDS: PREDNISONE 20 MG TABLET PO SCH (08:46)
[2018-07-03] MEDS: POTASSIUM CHLORIDE 20 MEQ ERTAB PO PRN ×3 (08:47→16:50)
[2018-07-03] MEDS: OSELTAMIVIR SUSP 15 MG/ML (6 CAPS/29ML) PO SCH ×2 (08:49)
[2018-07-03 11:00] VITALS: BP 135/86
[2018-07-03] MEDS: ACETAMINOPHEN-CODEINE 300/30MG TAB PO PRN ×3 (12:46→23:19)
[2018-07-03] MEDS ORDERED: EPOETIN ALFA 10,000 UNIT/ML VIAL SQ SCH (13:00)
[2018-07-03 16:00] VITALS: BP 124/73
[2018-07-03 20:00] VITALS: BP 112/77
[2018-07-04] VITALS (7 sets, daily range): BP systolic 100–141; BP diastolic 57–82
[2018-07-04] MEDS: ZYVOX 600 MG TAB PO SCH ×2 (02:24→13:24)
[2018-07-04] MEDS: MEROPENEM 1 GM VIAL IVP SCH ×3 (04:25→22:39)
[2018-07-04 05:09] LABS: HEMATOCRIT 26.3 % (36-48); MEAN CORPUSCULAR HEMOGLOBIN 29.5 pg (27.0-33.0); MEAN CORPUSCULAR HGB CONC 33.1 g/dL (32.0-36.0); MEAN CORPUSCULAR VOLUME 89.2 fL (79-99); NUCLEATED RED BLOOD CELLS 0.1 % (0.0-0.19); PLATELET COUNT (AUTO) 205 K/uL (130-400); RED BLOOD CELL COUNT(AUTO) 2.95 MIL/uL (4.00-5.50); RED CELL DISTRIBUTION WIDTH 16.4 % (11.0-15.5); WHITE BLOOD COUNT (AUTO) 6.2 K/uL (4.8-10.8)
[2018-07-04] MEDS: INSULIN HUMULIN R 100 UNIT/ML 3ML SQ SCH ×4 (06:36→22:41)
[2018-07-04] MEDS: IPRATROPIUM/ALBUTEROL SULFATE 3 ML SOLUTION IH SCH ×4 (06:50→23:58)
[2018-07-04] MEDS: BUDESONIDE 0.5 MG/2 ML INH IH SCH ×2 (07:00→18:08)
[2018-07-04] MEDS: FLUCONAZOLE 200 MG/NS 100 ML 100 ML IV SCH (10:16)
[2018-07-04] MEDS: PANTOPRAZOLE SODIUM 40 MG TABLET.DR PO SCH ×2 (10:16→22:40)
[2018-07-04] MEDS: PREDNISONE 20 MG TABLET PO SCH (10:17)
[2018-07-04] MEDS: FOLIC ACID/VITAMIN B COMP W-C 1 MG CAPSULE PO SCH (10:17)
[2018-07-04] MEDS: OSELTAMIVIR SUSP 15 MG/ML (6 CAPS/29ML) PO SCH ×2 (10:17)
[2018-07-04] MEDS: ACETAMINOPHEN-CODEINE 300/30MG TAB PO PRN ×2 (13:07→23:46)
[2018-07-04] MEDS: HYDROCODONE/CHLORPHEN 5 ML BOTTLE PO SCH ×2 (13:23→22:40)
[2018-07-05] MEDS: ZYVOX 600 MG TAB PO SCH ×2 (01:27→14:23)
[2018-07-05 03:23] VITALS: BP 130/76
[2018-07-05] MEDS: MEROPENEM 1 GM VIAL IVP SCH ×3 (05:33→20:29)
[2018-07-05] MEDS: INSULIN HUMULIN R 100 UNIT/ML 3ML SQ SCH ×4 (05:36→20:35)
[2018-07-05 06:02] LABS: HEMATOCRIT 26.2 % (36-48); MEAN CORPUSCULAR HEMOGLOBIN 30.2 pg (27.0-33.0); MEAN CORPUSCULAR VOLUME 88.8 fL (79-99); NUCLEATED RED BLOOD CELLS 0.1 % (0.0-0.19); PLATELET COUNT (AUTO) 253 K/uL (130-400); RED BLOOD CELL COUNT(AUTO) 2.95 MIL/uL (4.00-5.50); RED CELL DISTRIBUTION WIDTH 16.4 % (11.0-15.5); WHITE BLOOD COUNT (AUTO) 7.1 K/uL (4.8-10.8)
[2018-07-05 06:16] LABS: CREATININE 1.7 mg/dL (0.5-1.5)
[2018-07-05] MEDS: IPRATROPIUM/ALBUTEROL SULFATE 3 ML SOLUTION IH SCH ×3 (06:46→18:17)
[2018-07-05 07:00] VITALS: BP 124/76
[2018-07-05] MEDS: BUDESONIDE 0.5 MG/2 ML INH IH SCH ×2 (07:01→18:17)
[2018-07-05] MEDS: ACETAMINOPHEN-CODEINE 300/30MG TAB PO PRN ×2 (07:08→12:28)
[2018-07-05] MEDS: HYDROCODONE/CHLORPHEN 5 ML BOTTLE PO SCH ×2 (09:29→20:29)
[2018-07-05] MEDS: PANTOPRAZOLE SODIUM 40 MG TABLET.DR PO SCH ×2 (09:30→20:29)
[2018-07-05] MEDS: FOLIC ACID/VITAMIN B COMP W-C 1 MG CAPSULE PO SCH (09:30)
[2018-07-05] MEDS: FLUCONAZOLE 200 MG/NS 100 ML 100 ML IV SCH (09:30)
[2018-07-05] MEDS: PREDNISONE 20 MG TABLET PO SCH (09:30)
[2018-07-05 11:00] VITALS: BP 137/85
[2018-07-05 16:00] VITALS: BP 143/74
[2018-07-05 20:00] VITALS: BP 124/84
[2018-07-05 23:40] VITALS: BP 117/71
[2018-07-06] MEDS: ZYVOX 600 MG TAB PO SCH ×2 (01:24→14:19)
[2018-07-06] MEDS: ACETAMINOPHEN-CODEINE 300/30MG TAB PO PRN ×3 (01:26→17:53)
[2018-07-06 04:00] VITALS: BP 133/71
[2018-07-06] MEDS: MEROPENEM 1 GM VIAL IVP SCH ×3 (04:06→21:00)
[2018-07-06] MEDS: INSULIN HUMULIN R 100 UNIT/ML 3ML SQ SCH ×4 (05:58→21:06)
[2018-07-06 06:29] LABS: HEMATOCRIT 28.1 % (36-48); MEAN CORPUSCULAR HEMOGLOBIN 30.1 pg (27.0-33.0); MEAN CORPUSCULAR HGB CONC 33.9 g/dL (32.0-36.0); MEAN CORPUSCULAR VOLUME 88.9 fL (79-99); NUCLEATED RED BLOOD CELLS 0.1 % (0.0-0.19); PLATELET COUNT (AUTO) 260 K/uL (130-400); RED BLOOD CELL COUNT(AUTO) 3.16 MIL/uL (4.00-5.50); RED CELL DISTRIBUTION WIDTH 16.3 % (11.0-15.5); WHITE BLOOD COUNT (AUTO) 8.4 K/uL (4.8-10.8)
[2018-07-06] MEDS: IPRATROPIUM/ALBUTEROL SULFATE 3 ML SOLUTION IH SCH ×5 (06:39→23:21)
[2018-07-06] MEDS: BUDESONIDE 0.5 MG/2 ML INH IH SCH ×2 (06:39→19:34)
[2018-07-06 06:50] LABS: CREATININE 1.5 mg/dL (0.5-1.5); MAGNESIUM 1.6 mg/dL (1.80-2.40); PHOSPHORUS 2.8 mg/dL (2.5-4.9); POTASSIUM 3.8 mmol/L (3.5-5.1)
[2018-07-06 07:30] VITALS: BP 130/71
[2018-07-06] MEDS: HYDROCODONE/CHLORPHEN 5 ML BOTTLE PO SCH ×2 (10:35→21:00)
[2018-07-06] MEDS: PANTOPRAZOLE SODIUM 40 MG TABLET.DR PO SCH ×2 (10:35→21:00)
[2018-07-06] MEDS: POTASSIUM CHLORIDE 20 MEQ ERTAB PO PRN ×2 (10:35→14:20)
[2018-07-06] MEDS: FOLIC ACID/VITAMIN B COMP W-C 1 MG CAPSULE PO SCH (10:35)
[2018-07-06] MEDS: PREDNISONE 20 MG TABLET PO SCH (10:35)
[2018-07-06] MEDS: FLUCONAZOLE 200 MG/NS 100 ML 100 ML IV SCH (10:36)
[2018-07-06 11:00] VITALS: BP 107/60
[2018-07-06 14:08] LABS: INR 0.99 (0.85-1.15); PARTIAL THROMBOPLASTIN TIME 23.6 SEC (26.3-35.5); PROTHROMBIN TIME 10.4 SEC (9.6-11.6)
[2018-07-06 16:00] VITALS: BP 144/81
[2018-07-06] MEDS: MAGNESIUM 2GM PREMIX 50ML 50 ML IV SCH (16:23)
[2018-07-06 20:00] VITALS: BP 122/79
[2018-07-06 23:21] VITALS: BP 113/68
[2018-07-07] MEDS: ZYVOX 600 MG TAB PO SCH ×2 (02:26→14:16)
[2018-07-07 03:18] VITALS: BP 108/58
[2018-07-07] MEDS: MEROPENEM 1 GM VIAL IVP SCH ×2 (04:04→12:54)
[2018-07-07] MEDS: INSULIN HUMULIN R 100 UNIT/ML 3ML SQ SCH ×3 (05:29→17:16)
[2018-07-07 05:38] LABS: HEMATOCRIT 28.4 % (36-48); MEAN CORPUSCULAR HEMOGLOBIN 29.6 pg (27.0-33.0); MEAN CORPUSCULAR HGB CONC 33.6 g/dL (32.0-36.0); MEAN CORPUSCULAR VOLUME 88.2 fL (79-99); NUCLEATED RED BLOOD CELLS 0.2 % (0.0-0.19); PLATELET COUNT (AUTO) 244 K/uL (130-400); RED BLOOD CELL COUNT(AUTO) 3.22 MIL/uL (4.00-5.50); RED CELL DISTRIBUTION WIDTH 16.3 % (11.0-15.5); WHITE BLOOD COUNT (AUTO) 7.3 K/uL (4.8-10.8)
[2018-07-07 05:41] LABS: CREATININE 1.3 mg/dL (0.5-1.5); MAGNESIUM 1.9 mg/dL (1.80-2.40); POTASSIUM 3.9 mmol/L (3.5-5.1)
[2018-07-07] MEDS: BUDESONIDE 0.5 MG/2 ML INH IH SCH ×2 (06:36→18:59)
[2018-07-07] MEDS: IPRATROPIUM/ALBUTEROL SULFATE 3 ML SOLUTION IH SCH ×3 (06:36→18:55)
[2018-07-07] MEDS: PREDNISONE 20 MG TABLET PO SCH (08:06)
[2018-07-07] MEDS: HYDROCODONE/CHLORPHEN 5 ML BOTTLE PO SCH (08:06)
[2018-07-07] MEDS: PANTOPRAZOLE SODIUM 40 MG TABLET.DR PO SCH (08:06)
[2018-07-07] MEDS: FOLIC ACID/VITAMIN B COMP W-C 1 MG CAPSULE PO SCH (08:06)
[2018-07-07] MEDS: FLUCONAZOLE 200 MG/NS 100 ML 100 ML IV SCH (08:07)
[2018-07-07 08:30] VITALS: BP 124/72
[2018-07-07 12:11] VITALS: BP 129/76
[2018-07-07] MEDS: ACETAMINOPHEN-CODEINE 300/30MG TAB PO PRN (13:09)
[2018-07-07 17:38] VITALS: BP 127/85
== END 2018-07-07 19:20 | DRG 853 ==
LOC: EDH 11:00 → EDHIP 12:55 → 2CH 13:45 → 2AH 06-24 16:31 → 3DH 06-27 16:32 → 2CH 06-30 08:43 → 3CH 07-01 10:27
PROVIDERS: ADMIT Family Medicine; ATTEND Family Medicine
PROC: 0B9C8ZX Drainage of Right Upper Lung Lobe, Via Natural or Artificial Opening Endoscopic, Diagnostic (ICD-10-PCS; principal; 2018-06-30)
PROC: 0BDC8ZX Extraction of Right Upper Lung Lobe, Via Natural or Artificial Opening Endoscopic, Diagnostic (ICD-10-PCS; 2018-06-30)
PROC: 30233N1 Transfusion of Nonautologous Red Blood Cells into Peripheral Vein, Percutaneous Approach (ICD-10-PCS; 2018-06-30)
PROC: 0BBC8ZX Excision of Right Upper Lung Lobe, Via Natural or Artificial Opening Endoscopic, Diagnostic (ICD-10-PCS; 2018-06-30)
DX: A41.50 Gram-negative sepsis, unspecified (principal); J18.1 Lobar pneumonia, unspecified organism; J96.90 Respiratory failure, unspecified, unspecified whether with hypoxia or hypercapnia; N17.0 Acute kidney failure with tubular necrosis; E10.10 Type 1 diabetes mellitus with ketoacidosis without coma; J11.08 Influenza due to unidentified influenza virus with specified pneumonia; J44.0 Chronic obstructive pulmonary disease with (acute) lower respiratory infection; I50.32 Chronic diastolic (congestive) heart failure; I13.0 Hypertensive heart and chronic kidney disease with heart failure and stage 1 through stage 4 chronic kidney disease, or unspecified chronic kidney disease; N39.0 Urinary tract infection, site not specified; N04.9 Nephrotic syndrome with unspecified morphologic changes; R57.9 Shock, unspecified; E27.40 Unspecified adrenocortical insufficiency; E78.5 Hyperlipidemia, unspecified; E83.42 Hypomagnesemia; E83.51 Hypocalcemia; E87.6 Hypokalemia; R65.20 Severe sepsis without septic shock; N18.9 Chronic kidney disease, unspecified; G89.4 Chronic pain syndrome; M54.9 Dorsalgia, unspecified; F41.9 Anxiety disorder, unspecified; E10.21 Type 1 diabetes mellitus with diabetic nephropathy; E10.22 Type 1 diabetes mellitus with diabetic chronic kidney disease; E10.51 Type 1 diabetes mellitus with diabetic peripheral angiopathy without gangrene; K74.60 Unspecified cirrhosis of liver; J11.1 Influenza due to unidentified influenza virus with other respiratory manifestations; T36.8X5A Adverse effect of other systemic antibiotics, initial encounter; D50.9 Iron deficiency anemia, unspecified; K57.90 Diverticulosis of intestine, part unspecified, without perforation or abscess without bleeding; B96.20 Unspecified Escherichia coli [E. coli] as the cause of diseases classified elsewhere; E66.9 Obesity, unspecified; E83.39 Other disorders of phosphorus metabolism; F32.9 Major depressive disorder, single episode, unspecified; Z96.653 Presence of artificial knee joint, bilateral; Z91.19 Patient's noncompliance with other medical treatment and regimen; Z90.49 Acquired absence of other specified parts of digestive tract; Z79.01 Long term (current) use of anticoagulants; Z80.1 Family history of malignant neoplasm of trachea, bronchus and lung; Z79.4 Long term (current) use of insulin; Z86.718 Personal history of other venous thrombosis and embolism; Z74.01 Bed confinement status; Z83.3 Family history of diabetes mellitus
CPT/HCPCS: 36415; 36430; 36600; 70450; 71045; 71250; 72072; 72100; 72170; 74177; 76770; 80048; 80053; 80202; 80305; 81001; 82009; 82140; 82270; 82550; 82570; 82728; 82803; 82948; 83540; 83550; 83605; 83735; 83874; 83880; 83930; 83935; 84100; 84133; 84146; 84156; 84165; 84300; 84443; 84484; 84540; 84550; 84702; 85014; 85018; 85025; 85027; 85610; 85730; 86850; 86900; 86901; 86922; 87040; 87071; 87077; 87088; 87101; 87116; 87186; 87205; 87206; 87324; 87804; 87880; 88104; 88305; 88312; 93005; 93306; 94640; 94664; 97039; 99291; A4218; A4344; A4357; C1894; G0008; J0696; J0885; J1450; J1720; J1815; J1956; J2185; J2405; J2543; J2704; J3370; J3475; J3480; J7030; J7042; J7120; P9016; Q2038; Q9967